=== PATIENT | female | born 1985 | race Caucasian/White ===

== ENCOUNTER 2016-12-17 14:53 | Inpatient (IN) | payer BC, OTHER ==
[2016-12-17 16:19] LABS: ROM Internal QC QC Line Present
[2016-12-17 17:03] LABS: Hematocrit 38 % (35-47); Hemoglobin 12.8 g/dl (12.0-16.0); Mean Corpuscular HGB Conc 34 g/dl (31-36); Mean Corpuscular Hemoglobin 28 pg (27-31); Mean Corpuscular Volume 83 fL (80-97); Mean Platelet Volume 8 um3 (7.4-10.4); Red Blood Count 4.57 10^6/ul (4.0-5.4); Red Cell Distribution Width 13 % (10.5-15); White Blood Count 12.7 10^3/ul (3.5-10.8)
[2016-12-17] MEDS ORDERED: Sodium Citrate/Citric Acid* 15 ML UDC ONE (21:17)
[2016-12-17] MEDS ORDERED: ceFOXitin 2 GM IVPREMIX* 2 GM/50 ML BAG ONE (21:17)
[2016-12-17] MEDS ORDERED: Morphine PF AMP (0.5MG/ML)* 5 MG/10 ML AMP ONE (21:20)
[2016-12-17] MEDS ORDERED: Phenylephrine IV* 40 MCG/ML 10 ML SYRINGE ONE (21:21)
[2016-12-17] MEDS ORDERED: Ondansetron INJ* 2 MG/ML VIAL ONE (22:16)
[2016-12-17] MEDS ORDERED: OXYTOCIN* 10 UNITS/ML 1 ML VIAL ONE (22:16)
[2016-12-17] MEDS ORDERED: fentaNYL* 50 MCG/ML 2 ML VIAL (100 MCG VIAL) IV PRN (22:52)
[2016-12-17] MEDS ORDERED: DiMENhydriNATE IV* 50 MG/ML VIAL IV PUSH PRN ×2 (22:52→22:53)
[2016-12-17] MEDS ORDERED: Naloxone* 0.4 MG/ML 1 ML VIAL IV PRN (22:53)
[2016-12-17] MEDS ORDERED: oxyCODONE/Acetamin 5/325 MG* TAB PO PRN (22:53)
[2016-12-17] MEDS ORDERED: Naloxone* 2 MG in NS 0.9% 250 ML* 250 ML IV PRN (22:53)
[2016-12-17] MEDS ORDERED: Ketorolac INJ* 30 MG/ML 1 ML VIAL IV PRN (22:53)
[2016-12-17] MEDS ORDERED: Nalbuphine* 20 MG/ML 1 ML VIAL IV PRN (22:53)
[2016-12-17] MEDS ORDERED: Ondansetron INJ* 2 MG/ML VIAL IV PRN (22:53)
[2016-12-17] MEDS ORDERED: Measles, Mumps,Rubella VACC* 0.5 ML/VIAL SUBCUT ONE (23:39)
[2016-12-17] MEDS ORDERED: RHO D Immune Globulin (HUMAN)* 300 MCG = 1,500 I.U. INJ IM ONE (23:39)
[2016-12-17] MEDS ORDERED: Witch Hazel PAD* JAR TOPICAL PRN (23:39)
[2016-12-17] MEDS ORDERED: Glycerin ADULT SUPP PR PRN (23:39)
[2016-12-17] MEDS ORDERED: Dibucaine 1% 28.35 GM TUBE PR PRN (23:39)
[2016-12-17] MEDS ORDERED: Oxytocin in LR* 20 UNITS/1,000 ML BAG IVPB SCH (23:45)
[2016-12-18] MEDS: Ibuprofen TAB* 600 MG PO SCH ×4 (05:03→16:46)
[2016-12-18] MEDS: Docusate CAP* 100 MG PO SCH ×3 (08:07→20:14)
[2016-12-18] MEDS: Simethicone CHEW TAB* 80 MG PO SCH ×3 (08:07→20:14)
[2016-12-18] MEDS: Acetaminophen TAB* 325 MG PO PRN ×3 (08:09→20:14)
[2016-12-18] MEDS ORDERED: Ferrous Gluconate TAB* 324 MG TAB PO SCH (09:00)
[2016-12-18 10:04] LABS: Hematocrit 33 % (35-47); Hemoglobin 11.2 g/dl (12.0-16.0); Mean Corpuscular HGB Conc 34 g/dl (31-36); Mean Corpuscular Hemoglobin 29 pg (27-31); Mean Corpuscular Volume 85 fL (80-97); Mean Platelet Volume 8 um3 (7.4-10.4); Red Blood Count 3.88 10^6/ul (4.0-5.4); Red Cell Distribution Width 13 % (10.5-15); White Blood Count 10.3 10^3/ul (3.5-10.8)
[2016-12-18] MEDS ORDERED: oxyCODONE/Acetamin 5/325 MG* TAB PO PRN ×2 (14:00)
--- NOTE | 2016-12-18 20:51 | OP ---
DATE OF OPERATION: 12/17/16 - ROOM #[id number] DATE OF : 87 SURGEON: Luzma Mtz MD. GENERAL DENTIST/OWNER: Cassius Hidalgo MD ANESTHESIOLOGIST: Dr. Redmond. ANESTHESIA: Spinal. PRE-OP DIAGNOSIS: Intrauterine at 39-2/7th weeks, desires repeat C- section, declines further attempted vaginal after a section. POST-OP DIAGNOSIS: Intrauterine at 39-2/7th weeks, desires repeat C- section, declines further attempted vaginal after a section, delivered. OPERATIVE PROCEDURE: Repeat low transverse section. ESTIMATED BLOOD LOSS: 600 cc. URINE OUTPUT: 400 cc of clear yellow urine. FLUIDS: 1900 cc of crystalloid. FINDINGS: Revealed a vertex female, LOT, no nuchal cord, no meconium. Apgars were 9 at 1 minute and 9 at 5 minutes. Weight was 8 pounds 11 ounces. Placenta posterior insert intact. Manually extracted 3-vessel cord with no gross abnormalities. Tubes and ovaries are with a normal appearance. Uterine cavity without evidence of placental tissue or membranes retained with exploration of the uterine cavity. COMPLICATIONS: None apparent. DISPOSITION: Stable to recovery room. DESCRIPTION OF PROCEDURE: The patient was placed in dorsal lithotomy position. The abdomen was prepped in a sterile standard fashion. The patient was identified with universal protocol for correct procedure, patient, and position. After confirming excellent anesthesia with an Allis clamp, an incision was made to prior incisional site. This was done with a scalpel and this was carried down through to the fascia. Fascia was scored in the midline and extended laterally and superiorly using curved Polanco scissors. The fascia was superiorly with blunt and sharp dissection and inferiorly with blunt and sharp dissection. The peritoneum was then entered bluntly and the peritoneal incision was extended bluntly. A bladder blade was inserted. The lower uterine segment was identified. A wet and moist laparotomy sponge was used to pack off on the left colic gutter. An Allis was used to tent up on the lower uterine segment and an incision was made with a scalpel. This was carried down to the incision, was extended bluntly laterally and superiorly. The was found to be LOT position, head was delivered anterior, then posterior shoulder was delivered. No nuchal cord was appreciated. The cord was milked, then clamped and the infant was handed off to the awaiting senior windows engineer. Appropriate cord blood was obtained for RhoGAM workup. The placenta was then manually extracted and noted to be intact and have a normal appearance and 3-vessel cord. The uterus was exteriorized, wrapped in warm moist laparotomy sponge. Prior to that, tubes and ovaries were noted to have a normal appearance. The uterine cavity was then explored and noted to be free of any membranes or placental tissue and to have a normal contour. The incision was then reapproximated, the first layer with a running locked 0 Vicryl x2 and the second layer a running 0 Vicryl x1 with imbrication. The uterus was returned intraabdominally, colic gutters were lavaged. The laparotomy sponge placed to block off the left colic gutter was removed. Hemostasis was assured at the hysterotomy site. Peritoneum was then clamped with Chiqui's and the peritoneum was reapproximated with 3-0 Vicryl in a running fashion. The subfascial area was visualized, hemostasis assured with Bovie coagulation and the fascia was then reapproximated using 0 Vicryl x2 in a running fashion. Subcu was lavaged, hemostasis was assured and the skin was then reapproximated using 4-0 Monocryl in a subcuticular fashion. Steri's and Mastisol were then applied. All sponge, needle, instruments, and blade counts were correct throughout the case. The patient tolerated the procedure well and went to recovery room in stable condition. [id number]/[facility] #: [id number] MTDD
[2016-12-18] MEDS: Ibuprofen TAB* 600 MG PO PRN (23:23)
[2016-12-19] MEDS: Acetaminophen TAB* 325 MG PO PRN ×4 (02:31→19:33)
[2016-12-19] MEDS: Ibuprofen TAB* 600 MG PO PRN ×3 (05:51→17:45)
[2016-12-19] MEDS: Docusate CAP* 100 MG PO SCH ×3 (07:49→20:24)
[2016-12-19] MEDS: Simethicone CHEW TAB* 80 MG PO SCH ×4 (07:50→20:24)
[2016-12-20] MEDS: Ibuprofen TAB* 600 MG PO PRN (00:09)
[2016-12-20] MEDS: Acetaminophen TAB* 325 MG PO PRN (04:23)
[2016-12-20 08:18] VITALS: BP 119/81
--- NOTE | 2016-12-20 08:54 | PTEDU ---
Patient Name: SHAHLA DORSEY SHAHLA DORSEY selected video: Never Ever Shake a Baby to view on 12/20/2016 at 8:53:40 AM from [facility] [id number]
[2016-12-20] MEDS: Docusate CAP* 100 MG PO SCH (09:03)
[2016-12-20] MEDS: Simethicone CHEW TAB* 80 MG PO SCH (09:03)
--- NOTE | 2016-12-20 09:07 | PTEDU ---
Patient Name: SHAHLA DORSEY SHAHLA DORSEY selected video: Follow Me Mum: [employer] [facility] [employer] to view on 2016 at 9:06:52 AM [id number]
== END 2016-12-20 10:45 | disposition home or self-care (01) | DRG 540 ==
LOC: MCHOBOUT 14:53 → MCHOB 16:42
PROVIDERS: ADMIT Obstetrics & Gynecology; ATTEND Obstetrics & Gynecology
PROC: 10907ZC Drainage of Amniotic Fluid, Therapeutic from Products of Conception, Via Natural or Artificial Opening (ICD-10-PCS; 2016-12-17)
PROC: 10D00Z1 Extraction of Products of Conception, Low, Open Approach (ICD-10-PCS; principal; 2016-12-17 21:40)
DX: O34.211 Maternal care for low transverse scar from previous cesarean delivery (principal); F41.9 Anxiety disorder, unspecified; O99.824 Streptococcus B carrier state complicating childbirth; O99.344 Other mental disorders complicating childbirth; Z3A.39 39 weeks gestation of pregnancy; Z37.0 Single live birth
CPT/HCPCS: 36415; 84112; 85025; 85461; 86850; 86870; 86880; 86900; 86901; 90707; A9270-GY; J0694; J1885; J2405; J2590; J2790